=== PATIENT | female | born 1985 | race Caucasian/White ===

== ENCOUNTER 2016-11-30 09:54 | Emergency (ER) | payer OTHER ==
[~2016-11-30] VITALS: Ht 160 cm; Wt 63.5 kg
[~2016-11-30 09:54] MED LIST: ALLEGRA-D 12 HO1 TE1 PO; AMOXICILLIN500 M2 PO; ANAPROX DS550 MG PO; BACTRIM DS 8001 TA1 PO; BUSPAR10 MG PO; CIPRO500 MG PO; CIPROFLOXACIN500 MG PO; CLARITIN10 MG PO; CORDROL20 MG PO; CORTISPORIN SUS10 ML OT; DOXYCYCLINE MO100 MG PO; EES400 MG PO; ERYTHROCIN PO; FLAGYL500 MG PO; FLEXERIL10 MG PO; HYDROCODONE BIT1 T11 PO; KEFLEX500 MG PO; KEFTAB500 MG PO; LOMOTIL 0.025 M1 TA1 PO; MACROBID100 M1 PO; MEDROL DOSEPAK4 MG PO; MOTRIN600 MG PO; MOTRIN800 MG PO; MUCINEX600 MG; NAPROXEN500 MG PO; NORCO 5-325 TA1 EACH PO; ORTHO EVRA1 TD2 TD; ORTHO EVRA1 TDM; PENICILLIN VK500 MG PO; PERCOCET 325 MG1 TA2 PO; PREDNICOT20 MG PO; PREDNISONE20 MG PO; PRENATAL1 TA2; PROVENTIL0.09 MG/AC IH; PYRIDIUM100 MG PO; PYRIDIUM200 MG PO; SPRINTEC 35 MCG1 TA1 PO; ULTRAM50 MG PO; VALIUM10 MG; VIBRAMYCIN100 MG PO; VICODIN 5/500 505 MG PO; XANAX1 MG; ZITHROMAX Z PA250 MG PO; ZOLOFT100 MG PO
[2016-11-30 10:01] VITALS: BP 114/76
[2016-11-30] MEDS ORDERED: Bactroban Oint22 GM T (10:07)
== END 2016-11-30 10:13 | disposition home or self-care (01) ==
LOC: ED 09:54
DX: H92.02 Otalgia, left ear (principal); W57.XXXA Bitten or stung by nonvenomous insect and other nonvenomous arthropods, initial encounter; Y93.89 Activity, other specified; Y92.9 Unspecified place or not applicable; Y99.9 Unspecified external cause status; F17.200 Nicotine dependence, unspecified, uncomplicated; Z88.0 Allergy status to penicillin; Z88.1 Allergy status to other antibiotic agents; Z91.040 Latex allergy status

== ENCOUNTER 2016-12-20 15:30 | Emergency (ER) | payer OTHER ==
[~2016-12-20] VITALS: Ht 160 cm; Wt 65.8 kg
[~2016-12-20 15:30] MED LIST changes: +Bactroban Oint22 GM T
[2016-12-20 15:39] VITALS: BP 124/79
[2016-12-20] MEDS ORDERED: Motrin,Rufen800 MG PO (16:01)
== END 2016-12-20 15:58 | disposition home or self-care (01) ==
LOC: ED 15:30
DX: H00.012 Hordeolum externum right lower eyelid (principal); F17.200 Nicotine dependence, unspecified, uncomplicated; F12.10 Cannabis abuse, uncomplicated; F14.10 Cocaine abuse, uncomplicated; Z88.8 Allergy status to other drugs, medicaments and biological substances; Z91.040 Latex allergy status; Z88.1 Allergy status to other antibiotic agents; Z88.0 Allergy status to penicillin; Z98.890 Other specified postprocedural states

== ENCOUNTER 2017-01-15 08:15 | Emergency (ER) | payer OTHER ==
[~2017-01-15] VITALS: Ht 160 cm; Wt 63.5 kg
[~2017-01-15 08:15] MED LIST changes: +Motrin,Rufen800 MG PO
[2017-01-15 08:40] VITALS: BP 119/78
[2017-01-15] MEDS ORDERED: ZITHROMAX250 MG PO (08:50)
[2017-01-15] MEDS ORDERED: ZOFRAN ODT4 MG SL (09:01)
[2017-01-15] MEDS ORDERED: SEPTDS PO (09:01)
== END 2017-01-15 09:07 | disposition home or self-care (01) ==
LOC: ED 08:15
DX: L02.416 Cutaneous abscess of left lower limb (principal); B34.9 Viral infection, unspecified; F41.9 Anxiety disorder, unspecified; F17.200 Nicotine dependence, unspecified, uncomplicated; F10.10 Alcohol abuse, uncomplicated; Z88.0 Allergy status to penicillin; Z88.1 Allergy status to other antibiotic agents; Z91.040 Latex allergy status; Z88.8 Allergy status to other drugs, medicaments and biological substances

== ENCOUNTER 2017-01-18 11:01 | Emergency (ER) | payer OTHER ==
[~2017-01-18] VITALS: Wt 63.5 kg
[~2017-01-18 11:01] MED LIST changes: +SEPTDS PO; +ZITHROMAX250 MG PO; +ZOFRAN ODT4 MG SL
[2017-01-18 11:12] VITALS: BP 104/60
[2017-01-18] MEDS ORDERED: NAPROSYN500 MG PO (11:23)
== END 2017-01-18 11:22 | disposition home or self-care (01) ==
LOC: ED 11:01
DX: L02.416 Cutaneous abscess of left lower limb (principal); L02.211 Cutaneous abscess of abdominal wall; Z48.00 Encounter for change or removal of nonsurgical wound dressing; F41.9 Anxiety disorder, unspecified; F31.9 Bipolar disorder, unspecified; F17.200 Nicotine dependence, unspecified, uncomplicated; F12.10 Cannabis abuse, uncomplicated; F10.10 Alcohol abuse, uncomplicated; Z88.0 Allergy status to penicillin; Z88.1 Allergy status to other antibiotic agents; Z91.040 Latex allergy status; Z88.8 Allergy status to other drugs, medicaments and biological substances; Z79.899 Other long term (current) drug therapy

== ENCOUNTER 2017-02-14 14:35 | Emergency (ER) | payer OTHER ==
[~2017-02-14] VITALS: Wt 68.0 kg
[~2017-02-14 14:35] MED LIST changes: +NAPROSYN500 MG PO
[2017-02-14 14:48] VITALS: BP 111/65
[2017-02-14 15:36] LABS: BASO % 0.3 % (0.0-1.0); EOS % 0.2 % (1.0-4.0); HEMATOCRIT 36.8 % (37.0-47.0); HEMOGLOBIN 12.4 g/dl (12.0-16.0); LYMPH # 0.8 10*3/uL (1.3-4.4); LYMPH % 7.3 % (27.0-41.0); MEAN CORPUSCULAR HGB CONC 33.7 g/dl (33.0-37.0); MEAN PLATELET VOLUME 8.7 fl (9.6-12.3); MONO # 0.8 10*3/uL (0.1-1.0); MONO % 7.8 % (3.0-9.0); NEUT # 8.6 10*3/uL (2.3-7.9); NEUT % 83.9 % (47.0-73.0); PLATELET COUNT AUTOMATED 208 10*3/uL (130-400); RED CELL DISTRI WIDTH 11.9 % (0-14.5); WHITE BLOOD COUNT 10.3 10*3/uL (4.8-10.8)
[2017-02-14 15:54] LABS: ALBUMIN 3.6 gm/dl (3.1-4.5); ALKALINE PHOSPHATASE 75 U/L (45-117); BUN 8 mg/dl (7-24); CHLORIDE 107 mmol/L (98-107); CREATININE 0.59 mg/dL (0.55-1.02); POTASSIUM 3.6 mmol/L (3.5-5.1); SGOT/AST 22 IU/L (3-35); SGPT/ALT 30 U/L (12-78); SODIUM 137 mmol/L (136-145); TOTAL PROTEIN 7.3 gm/dL (6.4-8.2)
[2017-02-14 17:05] LABS: BILIRUBIN 1+ (NEGATIVE); BLOOD 3+ (NEGATIVE); CLARITY SL CLOUDY (CLEAR); COLOR YELLOW (YELLOW); GLUCOSE NEGATIVE (NEGATIVE); KETONE 2+ (NEGATIVE); LEUKO ESTERASE TRACE (NEGATIVE); NITRITE NEGATIVE (NEGATIVE); PH 5.5 (5.0-9.0); SPECIFIC GRAVITY 1.025 (1.005-1.030); UROBILINOGEN 0.2 E.U./dl (0.2-1.0)
[2017-02-14 17:22] LABS: BACTERIA TRACE; RBC 21-30 rbc/hpf (0-2)
[2017-02-14] MEDS ORDERED: PROAIR HFA8.5 GM INH (17:41)
[2017-02-14] MEDS ORDERED: ZOFRAN ODT4 MG SL (17:41)
[2017-02-14] MEDS ORDERED: TESSALON PERLE100 M1 PO (18:46)
[2017-02-14] MEDS ORDERED: HYCODAN/HYDROMET5 ML PO (18:47)
[2017-02-14] MEDS ORDERED: ALBUTEROL2.5 MG/0.5 INH (19:09)
== END 2017-02-14 18:10 | disposition home or self-care (01) ==
LOC: ED 14:35
PROVIDERS: Physician Assistant
DX: B34.9 Viral infection, unspecified (principal); R11.2 Nausea with vomiting, unspecified; F17.200 Nicotine dependence, unspecified, uncomplicated; F10.10 Alcohol abuse, uncomplicated; Z91.040 Latex allergy status; Z88.8 Allergy status to other drugs, medicaments and biological substances; Z88.0 Allergy status to penicillin; Z88.1 Allergy status to other antibiotic agents

== ENCOUNTER 2017-02-23 08:49 | Emergency (ER) | payer OTHER ==
[~2017-02-23] VITALS: Ht 160 cm; Wt 68.0 kg
[~2017-02-23 08:49] MED LIST changes: +ALBUTEROL2.5 MG/0.5 INH; +HYCODAN/HYDROMET5 ML PO; +PROAIR HFA8.5 GM INH; +TESSALON PERLE100 M1 PO
[2017-02-23 08:56] VITALS: BP 127/72
[2017-02-23 09:21] LABS: HEMATOCRIT 38.6 % (37.0-47.0); HEMOGLOBIN 12.7 g/dl (12.0-16.0); MEAN CELL VOLUME 90.6 fl (81.0-99.0); MEAN CORPUSCULAR HGB 29.8 pg (27.0-31.0); MEAN CORPUSCULAR HGB CONC 32.9 g/dl (33.0-37.0); MEAN PLATELET VOLUME 8.7 fl (9.6-12.3); PLATELET COUNT AUTOMATED 420 10*3/uL (130-400); RED BLOOD COUNT 4.26 10*6/uL (4.10-5.10); RED CELL DISTRI WIDTH 11.5 % (0-14.5); WHITE BLOOD COUNT 14.5 10*3/uL (4.8-10.8)
[2017-02-23 09:28] LABS: BILIRUBIN 1+ (NEGATIVE); BLOOD TRACE-INTACT (NEGATIVE); CLARITY SL CLOUDY (CLEAR); COLOR YELLOW (YELLOW); GLUCOSE NEGATIVE (NEGATIVE); KETONE NEGATIVE (NEGATIVE); LEUKO ESTERASE 2+ (NEGATIVE); NITRITE NEGATIVE (NEGATIVE); SPECIFIC GRAVITY 1.015 (1.005-1.030)
[2017-02-23 09:32] LABS: ALBUMIN 3.2 gm/dl (3.1-4.5); ALKALINE PHOSPHATASE 93 U/L (45-117); BUN 7 mg/dl (7-24); CHLORIDE 103 mmol/L (98-107); CREATININE 0.68 mg/dL (0.55-1.02); LIPASE 185 U/L (73-393); SGOT/AST 16 IU/L (3-35); SGPT/ALT 33 U/L (12-78); SODIUM 140 mmol/L (136-145); TOTAL PROTEIN 7.9 gm/dL (6.4-8.2)
[2017-02-23 09:37] LABS: EPITHELIAL CELLS 21-30
[2017-02-23 09:49] LABS: TOTAL CELLS COUNTED 100 #CELLS
[2017-02-23 09:50] LABS: PLATELET SUFFICIENCY HIGH (NORMAL)
[2017-02-23] MEDS ORDERED: PREDNISONE10 MG PO (10:29)
[2017-02-23] MEDS ORDERED: DUONEB 3 MG/3 ML3 M1 INH (10:29)
[2017-02-23] MEDS ORDERED: LEVAQUIN750 M1 PO (10:29)
[2017-02-23] MEDS ORDERED: ROBITUSSIN DM 105 ML PO (10:29)
[2017-02-23] MEDS ORDERED: ZOFRAN4 MG PO (10:33)
== END 2017-02-23 11:23 | disposition home or self-care (01) ==
LOC: ED 08:49
PROVIDERS: Nurse Practitioner Family
DX: J18.1 Lobar pneumonia, unspecified organism (principal); R03.0 Elevated blood-pressure reading, without diagnosis of hypertension; F17.200 Nicotine dependence, unspecified, uncomplicated; F12.10 Cannabis abuse, uncomplicated; Z98.890 Other specified postprocedural states; Z79.899 Other long term (current) drug therapy; Z88.8 Allergy status to other drugs, medicaments and biological substances; Z88.0 Allergy status to penicillin; Z88.1 Allergy status to other antibiotic agents; Z91.040 Latex allergy status

== ENCOUNTER → 2017-07-11 | Emergency (ER) | payer OTHER ==
[~2017-07-11] VITALS: Ht 160 cm; Wt 81.6 kg
[~2017-07-11] MED LIST changes: +DIAZEPAM10 M1 PO; +DUONEB 3 MG/3 ML3 M1 INH; +HYDROXYZINE PAM25 M1 PO; +IBUPROFEN600 MG PO; +LEVAQUIN750 M1 PO; +PREDNISONE10 MG PO; +QUETIAPINE FUM100 M3 PO; +ROBITUSSIN DM 105 ML PO; +SERTRALINE HYD100 MG PO; +ZOFRAN4 MG PO
[2017-07-11 12:48] LABS: BASO # 0.1 10*3/uL (0.0-0.1); BASO % 0.6 % (0.0-1.0); EOS # 0.2 10*3/uL (0.0-0.4); EOS % 2.1 % (1.0-4.0); HEMATOCRIT 39.8 % (37.0-47.0); HEMOGLOBIN 12.7 g/dl (12.0-16.0); LYMPH # 3.5 10*3/uL (1.3-4.4); MEAN CELL VOLUME 92.8 fl (81.0-99.0); MEAN CORPUSCULAR HGB 29.6 pg (27.0-31.0); MEAN CORPUSCULAR HGB CONC 31.9 g/dl (33.0-37.0); MEAN PLATELET VOLUME 8.3 fl (9.6-12.3); MONO # 0.7 10*3/uL (0.1-1.0); MONO % 6.2 % (3.0-9.0); NEUT # 6.1 10*3/uL (2.3-7.9); NEUT % 57.4 % (47.0-73.0); PLATELET COUNT AUTOMATED 289 10*3/uL (130-400); RED BLOOD COUNT 4.29 10*6/uL (4.10-5.10); RED CELL DISTRI WIDTH 13.3 % (0-14.5); WHITE BLOOD COUNT 10.6 10*3/uL (4.8-10.8)
[2017-07-11 12:50] LABS: BILIRUBIN NEGATIVE (NEGATIVE); BLOOD NEGATIVE (NEGATIVE); CLARITY CLOUDY (CLEAR); COLOR YELLOW (YELLOW); GLUCOSE NEGATIVE (NEGATIVE); KETONE NEGATIVE (NEGATIVE); LEUKO ESTERASE NEGATIVE (NEGATIVE); NITRITE NEGATIVE (NEGATIVE); SPECIFIC GRAVITY 1.015 (1.005-1.030); UROBILINOGEN 0.2 E.U./dl (0.2-1.0)
[2017-07-11 13:04] LABS: ALBUMIN 3.1 gm/dl (3.1-4.5); ALKALINE PHOSPHATASE 65 U/L (45-117); BUN 6 mg/dl (7-24); CHLORIDE 109 mmol/L (98-107); CREATININE 0.62 mg/dL (0.55-1.02); POTASSIUM 3.8 mmol/L (3.5-5.1); SGOT/AST 23 IU/L (3-35); SODIUM 140 mmol/L (136-145); TOTAL PROTEIN 6.8 gm/dL (6.4-8.2)
[2017-07-11 13:07] LABS: SGPT/ALT 25 U/L (12-78)
[2017-07-11 13:09] LABS: TROPONIN I < 0.015 ng/ml (<0.045)
[2017-07-11 13:21] LABS: URINE AMPHETAMINES < 1000 (1000ng/ml); URINE BARBITURATES < 200 (200ng/ml); URINE BENZODIAZEPINES > 200 (200ng/ml); URINE CANNABINOIDS (THC) < 50 (50ng/ml); URINE METHADONE < 300 (300ng/ml)
[2017-07-11 13:22] LABS: BACTERIA 1+; EPITHELIAL CELLS 40-50
[2017-07-11 13:27] LABS: URINE COCAINE < 300 (300ng/ml); URINE OPIATES > 300 (300ng/ml); URINE PHENCYCLIDINE < 25 (25ng/ml)
[2017-07-11 14:03] VITALS: BP 114/65
== END ==
LOC: ED 12:11
PROVIDERS: Physician Assistant
DX: M72.2 Plantar fascial fibromatosis (principal); R60.0 Localized edema; F17.200 Nicotine dependence, unspecified, uncomplicated; Z88.0 Allergy status to penicillin; Z88.1 Allergy status to other antibiotic agents; Z88.8 Allergy status to other drugs, medicaments and biological substances; Z91.040 Latex allergy status; Z79.899 Other long term (current) drug therapy

== ENCOUNTER → 2024-05-12 | Outpatient (CLI) | payer OTHER ==
[2024-05-12 09:51] LABS: HEMATOCRIT 39.9 % (37.0-47.0); MEAN CELL VOLUME 91.5 fl (81.0-99.0); MEAN CORPUSCULAR HGB CONC 32.8 g/dl (33.0-37.0); MEAN PLATELET VOLUME 8.2 fl (9.6-12.3); PLATELET COUNT AUTOMATED 380 10*3/uL (130-400); RED BLOOD COUNT 4.36 10*6/uL (4.10-5.10); WHITE BLOOD COUNT 21.9 10*3/uL (4.8-10.8)
[2024-05-12 10:03] LABS: MANUAL DIFF REFLEX YES
[2024-05-12 10:27] LABS: ALKALINE PHOSPHATASE 50 U/L (46-116); BUN 16 mg/dl (9-23); CHLORIDE 102 mmol/L (98-107); CHOLESTEROL 170 mg/dL (<200); LDL CHOLESTEROL 56 mg/dL (9-159); POTASSIUM 4.2 mmol/L (3.4-5.1); SGPT/ALT 25 U/L (5-49); TOTAL PROTEIN 5.8 gm/dL (6.0-8.0); TRIGLYCERIDES 244 mg/dl (<150)
[2024-05-12 12:12] LABS: ATYPICAL LYMPHS 1 % (0-0); PLATELET SUFFICIENCY NORMAL (NORMAL); TOTAL CELLS COUNTED 100 #CELLS
== END | disposition home or self-care (01) ==
LOC: LAB 09:29
PROVIDERS: ATTEND Nurse Practitioner Family
DX: Z51.81 Encounter for therapeutic drug level monitoring (principal); F43.10 Post-traumatic stress disorder, unspecified